=== PATIENT | male | born 1965 | race Caucasian/White ===

== ENCOUNTER 2019-05-08 14:36 | Emergency (ER) | payer OTHER ==
[2019-05-08 15:59] VITALS: BP 115/87
--- NOTE | 2019-05-08 16:24 | UC ---
Dizzy HPI HPI Summary: 54 yo man comes for assessment of 3 days of left shoulder and arm pain associated with near syncope at one point. Onset 3 days ago, without hx of trauma to the neck or left arm. Overall, he is not active and cannot account for any strain in the neck or upper back muscles. 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 No hx of diabetes. He has no idea if his cholesterol is normal or not. Off and on he feels some element of dizziness. His called EMT at 2 am 2 or 3 nights ago, who advised him to take aspirin. At the time of their assessment, he had normal vitals, and they did not proceed to the ER. He has a hx of PTSD, no gi symptoms. - History Of Current Complaint Chief Complaint: UCGeneralIllness Stated Complaint: LEFT SHOULDER/ARM PAIN Time Seen by Provider: 05/08/19 16:13 Hx Obtained From: Patient Onset/Duration: Gradual Onset, Lasting Days Timing: Constant - waxes and wanes a bit but does not resolve. Severity Initially: Mild Severity Currently: Mild Pain Intensity: 2 Character: Lightheaded, Weak Aggravating Factor(s): Position Change - more uncomfortable lying on his left side. Alleviating Factor(s): Nothing Associated Signs And Symptoms: Negative: Nausea, Vomiting, Diaphoresis, Chest Pain, SOB, Palpitations - Risk Factors Cardiac Risk Factors: Smoking CVA Risk Factor: Smoking - Allergies/Home Medications Allergies/Adverse Reactions: Allergies Allergy/AdvReac Type Severity Reaction Status Date / Time No Known Allergies Allergy Verified 05/08/19 15:51 Home Medications: Home Medications Albuterol HFA INHALER* [Ventolin HFA Inhaler*] 2 puff INH Q4H PRN 05/08/19 [ History Confirmed 05/08/19] PMH/Surg Hx/FS Hx/Imm Hx Previously Healthy: No Psychological History: Post Traumatic Stress Disorder - Surgical History Surgical History: Yes Surgery Procedure, Year, and Place: R 5th finger - Family History Known Family History: Positive: Diabetes, Other - father elderly, no hx of [place] - Social History Occupation: Retired Lives: With Family Alcohol Use: Rare Substance Use Type: Marijuana Smoking Status (MU): Heavy Every Day Tobacco Smoker Amount Used/How Often: 1/2 ppd Review of Systems All Other Systems Reviewed And Are Negative: Yes Constitutional: Positive: Negative Skin: Positive: Negative Eyes: Positive: Negative ENT: Positive: Negative Respiratory: Negative: Shortness Of Breath, Cough Cardiovascular: Negative: Palpitations, Chest Pain Gastrointestinal: Positive: Negative Genitourinary: Positive: Negative Motor: Positive: Negative Neurovascular: Positive: Negative Musculoskeletal: Positive: Myalgia Neurological/Mental Status: Positive: Paresthesia Psychological: Positive: Negative Is Patient Immunocompromised?: No Physical Exam Triage Information Reviewed: Yes Appearance: Well-Appearing, No Pain Distress, Other: - central obesity Vital Signs: Initial Vital Signs Temp 98.5 F 05/08/19 15:52 Pulse 98 05/08/19 15:52 Resp 19 05/08/19 15:52 BP 115/87 05/08/19 15:52 Pulse Ox 98 05/08/19 15:52 ENT: Positive: Normal ENT inspection Neck: Positive: Supple, Nontender, No Lymphadenopathy Respiratory: Positive: Lungs clear, Normal breath sounds, No respiratory distress Cardiovascular: Positive: RRR, No Murmur, Pulses Normal Musculoskeletal Exam: Other - Normal cervical rom--does not provoke worsening of symptoms. Full rom in the left shoulder without change of symptoms. Mild TTP in the left trapezius Musculoskeletal: Positive: ROM Intact, No Edema Neurological: Positive: Alert, Muscle Tone Normal Skin Exam: Normal Diagnostics - EKG Cardiac Rate: NL Cardiac Rhythm: Sinus: Normal Ectopy: None ST Segment: Normal, Other - poor r wave progression Dizzy Course/Dx - Course Course Of Treatment: Discussed: his symptoms could be due to brachial plexopathy, but he has no hx of injury, and this does not explain the near syncopal episodes. He does not have regular MD care, so risk stratification is limited. He has a long smoking hx and sedentary lifestyle. He expresses concern about heart disease repeatedly. Advised ER evaluation for rule out based on pain pattern and lack of explanation of pre-syncopal episodes. - Differential Dx/Diagnosis Differential Diagnosis/HQI/PQRI: Myocardial Infarction, Vasovagal Reaction, Other - brachial plexus injury Provider Diagnosis: Left arm pain, Near syncope - Physician Notifications Discussed Patient Care With: Juana Romero Time Discussed With Above Provider: 16:45 Discharge ED - Sign-Out/Discharge Documenting (check all that apply): Patient Departure All imaging exams completed and their final reports reviewed: No Studies - Discharge Plan Condition: Stable Disposition: TRANS HIGHER LVL OF CARE FAC Patient Education Materials: Near Syncope (ED) Referrals: Marcello Virk DO [Primary Care Provider] - Additional Instructions: Please proceed to the emergency room for assessment, because further testing can help to rule out cardiac cause of your symptoms. - Billing Disposition and Condition Condition: STABLE Disposition: Trans Higher Lvl of Care Fac
== END 2019-05-08 16:49 | disposition short-term general hospital (02) ==
LOC: UCCORT 14:36
DX: M79.602 Pain in left arm (principal); R55 Syncope and collapse; F17.210 Nicotine dependence, cigarettes, uncomplicated; Z79.899 Other long term (current) drug therapy
CPT/HCPCS: 93005; 99202; G0463